=== PATIENT | male | born 1960 | race Caucasian/White ===

== ENCOUNTER → 2016-02-28 | Outpatient (CLI) | payer BC ==
[~2016-02-28] MED LIST: FLUO5CRE TOP; FLUT27.5 NAE; MULT-506 PO; TRIA1SPR10 NAE; [UNRECOGNIZED DRUG - CODE] TOP
--- NOTE | 2016-02-28 08:56 | DIAGNOSTIC IMAGING REPORT ---
ABDOMINAL ULTRASOUND, RIGHT UPPER QUADRANT HISTORY: Liver lesion.. COMPARISON: CT of the abdomen and pelvis January 18, [address] of the abdomen March 04, 2015 and right upper quadrant ultrasound January 16, 2014. FINDINGS: Liver morphology is normal. No hepatic lesions are identified on this exam. The 4 mm liver lesion shown on CT of March 04, 2015 is not evident on this exam. There is no biliary ductal dilatation. No gallstones are identified. A small gallbladder polyp is unchanged. The pancreatic body is normal. The head and tail are partially obscured. There is no right hydronephrosis. IMPRESSION: 1. No hepatic lesions identified by sonography. The 4 mm lesion shown on CT of March 04, 2015 is not visualized on this exam, likely due to its small size. 2. No gallstones or biliary ductal dilatation. Electronically signed by: Julio Yoder M.D. 02/28/2016 8:54 AM Dictated Date/Time: 02/28/2016 8:43 AM
== END | disposition home or self-care (01) ==
LOC: C.ULTR 08:08
PROVIDERS: ATTEND Internal Medicine
DX: K76.9 Liver disease, unspecified (principal)

== ENCOUNTER → 2016-03-13 | Outpatient (CLI) | payer BC ==
[2016-03-13 15:03] LABS: CHOLESTEROL/HDL RATIO 3.6
== END | disposition home or self-care (01) ==
LOC: C.LABSPEC 09:40
PROVIDERS: ATTEND Internal Medicine
DX: Z11.59 Encounter for screening for other viral diseases (principal); Z13.6 Encounter for screening for cardiovascular disorders

== ENCOUNTER → 2016-05-12 | Outpatient (CLI) | payer BC ==
--- NOTE | 2016-05-12 16:53 | DIAGNOSTIC IMAGING REPORT ---
MRI right shoulder RIGHT UPPER EXT JOINT WITHOUT CLINICAL HISTORY: RIGHT ROTATOR CUFF TEAR Right trauma. Pain. TECHNIQUE: Multi axial MRI acquisition COMPARISON STUDY: None FINDINGS: Hypertrophic change acromioclavicular joint. There is mild impingement. Mild supraspinatus tendinopathy. No evidence for full-thickness rotator cuff tear. The infraspinatus and subscapularis tendons are intact. Moderate scattered subscapularis tendinopathy. Biceps tendon is intact. Degenerative change family labrum with substance loss at the superior labral margin. IMPRESSION: 1. Moderate degenerative change of all major osseous structures. 2. Hypertrophic change acromioclavicular joint creating tendinopathy of the supraspinatus. 3. Moderate tendinopathy of the subscapularis tendon. 4. Degenerative changes of the substance of the glenoid labrum primarily at its the superior and anterior superior aspect. 5. Electronically signed by: Nabeel Arrington M.D. 05/12/2016 4:51 PM Dictated Date/Time: 05/12/2016 4:45 PM
== END | disposition home or self-care (01) ==
PROVIDERS: ATTEND Orthopaedic Surgery
DX: S46.011A Strain of muscle(s) and tendon(s) of the rotator cuff of right shoulder, initial encounter (principal); X58.XXXA Exposure to other specified factors, initial encounter; M25.811 Other specified joint disorders, right shoulder

== ENCOUNTER → 2016-09-11 | Outpatient (CLI) | payer BC ==
[2016-09-11 12:11] LABS: BASO % 0.5 %; BASO ABS # 0.02 K/uL (0-0.2); COMPLETE YES; EOS % 3.8 %; HEMATOCRIT 45.6 % (42-52); IG% 0.2 %; LYMPH % 31.4 %; LYMPH ABS # 1.32 K/uL (1.2-3.4); MEAN CELL VOLUME 88.5 fL (80-100); MEAN CORPUSCULAR HEMOGLOBIN 31.5 pg (25-34); MEAN CORPUSCULAR HGB CONC 35.5 g/dl (32-36); MEAN PLATELET VOLUME 10.3 fL (7.4-10.4); MONO % 8.6 %; NEUT % 55.5 %; PLATELET COUNT 238 K/uL (130-400); RED BLOOD COUNT 5.15 M/uL (4.7-6.1); WHITE BLOOD COUNT 4.21 K/uL (4.8-10.8)
[2016-09-11 12:24] LABS: ALT/SGPT 17 U/L (12-78); AST/SGOT 17 U/L (15-37); BLOOD UREA NITROGEN 10 mg/dl (7-18); BUN/CREATININE RATIO 10.8 (10-20); CALCIUM 8.7 mg/dl (8.5-10.1); CARBON DIOXIDE 28 mmol/L (21-32); CHLORIDE 108 mmol/L (98-107); CREATININE 0.96 mg/dl (0.60-1.40); GLUCOSE 91 mg/dl (70-99); POTASSIUM 3.9 mmol/L (3.5-5.1); SODIUM 141 mmol/L (136-145)
[2016-09-11 12:27] LABS: CHOLESTEROL/HDL RATIO 3.1
[2016-09-11 12:27] LABS: ALB/GLOB RATIO 1.2 (0.9-2); ALKALINE PHOSPHATASE 73 U/L (45-117)
== END | disposition home or self-care (01) ==
LOC: C.LABBFT 08:24
PROVIDERS: ATTEND Nurse Practitioner Family
DX: C18.0 Malignant neoplasm of cecum (principal); E78.5 Hyperlipidemia, unspecified

== ENCOUNTER → 2016-10-31 | Outpatient (CLI) | payer BC | END | disposition home or self-care (01) | LOC: C.PATHSPEC 17:27 | PROVIDERS: ATTEND Dermatology | DX: L57.0 Actinic keratosis (principal) ==

== ENCOUNTER → 2016-11-29 | Day surgery (SDC) | payer BC ==
[2016-11-17 08:54] VITALS: Ht 172.7 cm; Wt 84.1 kg
[~2016-11-29] VITALS: Ht 172.7 cm; Wt 84.1 kg
[~2016-11-29] MED LIST changes: -FLUT27.5 NAE; +LIDOCAINE HCL 2% 2 ML VIAL (20MG/ML) ONE; +MIDAZOLAM HCL 1 MG/ML 2ML VIAL ONE; +PROPOFOL IV EMULSION 10 MG/ML 20 ML VIAL IV ONE; -[UNRECOGNIZED DRUG - CODE] TOP
[2016-11-29 08:26] VITALS: TEMP 37.1
--- NOTE | 2016-11-29 08:48 | Endo History and Physical ---
History & Physical Date of Service: Nov 29, 2016. Chief Complaint: Hx of colon cancer Referring Physician: Janie History of Present Illness 56 yo CM who presents for colonoscopy secondary to history of colon cancer. Past Medical History Arthritis, Fractures, Cancer, Other Past Surgical History Hx Cardiac Surgery: No Hx Internal Defibrillator: No Hx Pacemaker: No Hx Abdominal Surgery: No Hx of Implantable Prosthesis: No Hx Post-Op Nausea and Vomiting: No Hx Cancer Surgery: Yes (COLON RESECTION) Hx Thoracic Surgery: No Hx Orthopedic: Yes (LEFT TORN MENISCUS REPAIR) Hx Urinary Tract Surgery: No Family History None Social History Smoking Status: Never Smoker Hx Substance Use: No Hx Alcohol Use: Yes (RARELY) Allergies Coded Allergies: No Known Allergies (Unverified , 11/29/16) Current Medications Reported Home Medications Medications Dose Route/Sig Max Daily Dose Days Date Category Nasal Allergy 24 Hour (Triamcinolone Acetonide (Nasal) 55 Mcg/Act Spr 1 [place] JAQUELINE QAM 11/17/16 Reported Multivitamin (Multivitamins) Tab 1 Tab PO QAM 05/12/13 Reported Vital Signs Weight (Kilograms): 84.09 Height (Feet): 5 Height (Inches): 8 Date Time Temp Pulse Resp B/P (MAP) Pulse Ox O2 Delivery O2 Flow Rate FiO2 11/29/16 08:26 37.1 63 18 137/91 (106) 95 Room Air Physical Exam General Appearance: WD/WN, no apparent distress Respiratory/Chest: Auscultation: breath sounds normal Cardiovascular: Heart Auscultation: RRR Abdomen: Bowel Sounds: normal Inspection & Palpation: soft, non-distended, no tenderness, guarding & rebound Assessment and Plan Assessment: 56 yo CM who presents for colonoscopy secondary to history of colon cancer. Plan: Proceed with colonoscopy.
--- NOTE | 2016-11-29 09:16 | Discharge Instructions ---
Endoscopy Patient Instructions Date / Procedure(s) Performed Nov 29, 2016. Colonoscopy Allergy Information Coded Allergies: No Known Allergies (Unverified , 11/29/16) Discharge Date / Findings Nov 29, 2016. Colon polyp Internal hemorrhoids Medication Instructions OK to resume all medications today as prescribed Reported Home Medications Medications Dose Route/Sig Max Daily Dose Days Date Category Nasal Allergy 24 Hour (Triamcinolone Acetonide (Nasal) 55 Mcg/Act Spr 1 [place] JAQUELINE QAM 11/17/16 Reported Multivitamin (Multivitamins) Tab 1 Tab PO QAM 05/12/13 Reported Provider Instructions Activity Restrictions - No exercising or heavy lifting for 24 hours. - Do not drink alcohol the day of the procedure. - Do not drive a car or operate machinery until the day after the procedure. - Do not make any important decisions or sign important papers in 24 hours after the procedure. Following Day: - Return to full activity which may include returning to work/school. Diet Start your diet with liquids and light foods (jello, soup, juice, toast). Then eat your usual diet if not nauseated. Treatment For Common After Affects For mild abdominal pain, bloating, or excessive gas: - Rest - Eat lightly - Lie on right side Follow-Up Information Follow-up with Janie as scheduled Anesthesia Information What You Should Know You have had a procedure that required some medicine to reduce anxiety and discomfort. This treatment is called moderate sedation. After receiving the treatment, you may be sleepy, but you will be able to breathe on your own. The effects of the treatment may last for several hours. Follow these instructions along with Activity/Diet recommendations noted above: * Do NOT do anything where dizziness or clumsiness would be dangerous. * Rest quietly at home today, then you can be up and about tomorrow. * Have a responsible person stay with you the rest of today. * You may have had an I.V. today. If so, you may take the dressing off later today. Recommendations Call your doctor if: * Trouble breathing * Continuous vomiting for more than 24 hours * Temperature above 101 degrees * Severe abdominal pain or bloating * Pain not relieved by pain medicine ordered * There is increased drainage or redness from any incision * A large amount of rectal bleeding greater than 2-3 tablespoons. (If you had a polyp/s removed or have hemorrhoids, a small amount of blood - from the rectum is to be expected.) * You have any unanswered questions or concerns. IN THE EVENT OF A SERIOUS EMERGENCY, GO TO THE NEAREST EMERGENCY ROOM Your discharge instructions were prepared by provider Patel Morales. Patient Instructions Signature Page Russell Pretty Patient (or Guardian) Signature/Date: I have read and understand the instructions given to me by my caregivers. Caregiver/RN/Doctor Signature/Date: The above-named patient and/or guardian has received patient instructions on this date. + Original Patient Signature Page (only) stays with chart. Please make copy for patient.
--- NOTE | 2016-11-29 09:27 | GI REPORT ---
Procedure Date: 11/29/2016 8:46 AM Procedure: Colonoscopy Indications: High risk colon cancer surveillance: Personal history of colon cancer Medicines: Monitored Anesthesia Care Complications: No immediate complications. Estimated Blood Loss: Estimated blood loss: none. Procedure: Pre-Anesthesia Assessment: - Prior to the procedure, a History and Physical was performed, and patient medications and allergies were reviewed. The patient's tolerance of previous anesthesia was also reviewed. The risks and benefits of the procedure and the sedation options and risks were discussed with the patient. All questions were answered, and informed consent was obtained. Prior Anticoagulants: The patient has taken no previous anticoagulant or antiplatelet agents. ASA Grade Assessment: II - A patient with mild systemic disease. After reviewing the risks and benefits, the patient was deemed in satisfactory condition to undergo the procedure. After I obtained informed consent, the scope was passed under direct vision. Throughout the procedure, the patient's blood pressure, pulse, and oxygen saturations were monitored continuously. The Scope was introduced through the anus and advanced to the terminal ileum. The colonoscopy was performed without difficulty. The patient tolerated the procedure well. The quality of the bowel preparation was good. The terminal ileum, ileocecal valve, appendiceal orifice, and rectum were photographed. Findings: The perianal and digital rectal examinations were normal. A 5 mm polyp was found in the descending colon. The polyp was flat. The polyp was removed with a hot snare. Resection and retrieval were complete. There was evidence of a prior end-to-end colo-colonic anastomosis in the sigmoid colon. This was patent and was characterized by healthy appearing mucosa. The anastomosis was traversed. Non-bleeding internal hemorrhoids were found during retroflexion. The hemorrhoids were small. Impression: - One 5 mm polyp in the descending colon, removed with a hot snare. Resected and retrieved. - Patent end-to-end colo-colonic anastomosis, characterized by healthy appearing mucosa. - Non-bleeding internal hemorrhoids. Recommendation: - Resume previous diet. - Continue present medications. - Await pathology results. - Repeat colonoscopy for surveillance based on pathology results. Patel Morales DO 11/29/2016 9:27:10 AM This report has been signed electronically. Note Initiated On: 11/29/2016 8:46 AM I attest to the content of the Intraoperative Record and orders documented therein, exceptions below
[2016-11-29 09:51] VITALS: BP 158/94; PULSE 64; O2SAT 96
--- NOTE | 2016-11-29 10:22 | Anesthesiology Progress Note ---
Anesthesia Post Op Note Date & Time Nov 29, 2016 at 10:22 Vital Signs Pain Intensity: 0 Vital Signs Past 12 Hours Date Time Temp Pulse Resp B/P (MAP) Pulse Ox O2 Delivery O2 Flow Rate FiO2 11/29/16 09:51 64 20 158/94 (115) 96 Room Air 11/29/16 09:36 55 18 142/79 (100) 95 Room Air 11/29/16 09:21 72 14 126/82 (97) 95 Room Air 11/29/16 08:26 37.1 63 18 137/91 (106) 95 Room Air Notes Mental Status: alert / awake / arousable, participated in evaluation Pt Amnestic to Procedure: Yes Nausea / Vomiting: adequately controlled Pain: adequately controlled Airway Patency, RR, SpO2: stable & adequate BP & HR: stable & adequate Hydration State: stable & adequate Anesthetic Complications: no major complications apparent
== END | disposition home or self-care (01) ==
LOC: C.GI 08:06
PROVIDERS: ATTEND Internal Medicine
DX: Z12.11 Encounter for screening for malignant neoplasm of colon (principal); D12.4 Benign neoplasm of descending colon; K64.8 Other hemorrhoids; Z85.038 Personal history of other malignant neoplasm of large intestine; Z98.890 Other specified postprocedural states; Z68.28 Body mass index [BMI] 28.0-28.9, adult

== ENCOUNTER → 2016-12-27 | Outpatient (CLI) | payer BC ==
[~2016-12-27] MED LIST changes: -FLUO5CRE TOP; -LIDOCAINE HCL 2% 2 ML VIAL (20MG/ML) ONE; -MIDAZOLAM HCL 1 MG/ML 2ML VIAL ONE; +OPTIRAY 320 IV PRN; -PROPOFOL IV EMULSION 10 MG/ML 20 ML VIAL IV ONE
--- NOTE | 2016-12-27 12:55 | DIAGNOSTIC IMAGING REPORT ---
ABD/PELVIS IV AND ORAL CONT CT DOSE: 440.63 mGy.cm HISTORY: Colon carcinoma C18.0,K74.60 TECHNIQUE: Multiaxial CT images of the abdomen and pelvis were performed following the use of intravenous and oral contrast. A dose lowering technique was utilized adhering to the principles of ALARA. COMPARISON STUDY: 01/18/2016 FINDINGS: Lung bases are clear. Mild fatty infiltration of liver. Spleen and pancreas are unremarkable. Kidneys negative for hydronephrosis. Enhancement characteristics of the kidneys are unremarkable. Adrenal glands are within normal limits. Kidneys enhance uniformly. There is no significant retroperitoneal adenopathy. Abdominal aorta is normal in course and caliber. Bowel pattern overall is nonobstructive. Findings of a partial sigmoid resection are again noted. This is unchanged. Scattered diverticuli are present with no evidence for diverticulitis. IMPRESSION: 1. No acute process of the abdomen or pelvis. 2. No evidence for metastatic disease. 3. No change from the prior study. The above report was generated using voice recognition software. It may contain grammatical, syntax or spelling errors. Electronically signed by: Nabeel Arrington M.D. 12/27/2016 12:53 PM Dictated Date/Time: 12/27/2016 12:48 PM
== END | disposition home or self-care (01) ==
LOC: C.CTS 12:11
PROVIDERS: ATTEND Nurse Practitioner Family
DX: C18.0 Malignant neoplasm of cecum (principal); K74.60 Unspecified cirrhosis of liver

== ENCOUNTER → 2017-10-12 | Outpatient (CLI) | payer BC ==
--- NOTE | 2017-10-12 09:21 | DIAGNOSTIC IMAGING REPORT ---
CT SCAN OF THE CHEST, ABDOMEN, AND PELVIS WITH IV CONTRAST CLINICAL HISTORY: Follow-up colon cancer. COMPARISON STUDY: Chest CT scans dated 01/18/2016 and 03/03/2014. Abdominal CT dated 12/27/2016. TECHNIQUE: Following the IV administration of 93 of Optiray 320, CT scan of the chest, abdomen, and pelvis was performed from the thoracic inlet to the proximal femora. Images are reviewed in the axial, sagittal, and coronal planes. IV contrast was administered without complication. A dose lowering technique was utilized adhering to the principles of ALARA. CT DOSE: 739.45 mGy.cm FINDINGS: CHEST: Thyroid: Imaged portions of the thyroid gland are normal in size and attenuation. Thoracic aorta: The thoracic aorta is normal in caliber and demonstrates bovine variant arch anatomy. No dissection is seen. Pulmonary vasculature: The pulmonary trunk is normal in caliber. There are no filling defects identified in the central pulmonary vessels to indicate pulmonary embolus. Note that this examination was not protocoled for evaluation of the pulmonary arteries. Heart: The heart is top normal in size and without pericardial effusion. Lungs and pleural spaces: There is no airspace consolidation or pleural effusion. Minimal secretions are noted in the trachea. The central airways are otherwise clear. No concerning pulmonary lesion is identified. Mediastinum: There is no mediastinal lymphadenopathy. Rose: Clear. Axillae: There is no axillary lymphadenopathy. Bony thorax: No lytic or blastic lesions are identified. ABDOMEN AND PELVIS: Liver: The contrast-enhanced liver is normal in size, contour, and attenuation. There is no intrahepatic or ductal dilatation. The hepatic veins and portal veins are patent. Gallbladder: Unremarkable. Spleen: Normal in size and attenuation. Pancreas: Unremarkable. Adrenal glands: Unremarkable. Kidneys: The contrast enhanced kidneys are normal in size and without hydronephrosis. The kidneys enhance symmetrically. Abdominal vasculature: The abdominal aorta is normal in course and caliber noting scattered foci of atherosclerotic calcification. Bowel: There is evidence of small bowel malrotation. The duodenum fails to cross midline, and the cecum/ascending colon are located in the abdominal midline. There are postoperative changes from sigmoid colon resection with colocolonic anastomosis. No bowel obstruction is seen. Moderate colonic fecal retention is observed. The appendix is not identified. Peritoneum: There is no intraperitoneal free air or abdominal ascites. There is a large fat-containing umbilical hernia. Lymphadenopathy: None. Pelvic viscera: The bladder, prostate, and seminal vesicles are normal as imaged. Surgical clips are noted along the spermatic cord bilaterally. Skeletal structures: There is mild lumbosacral spondylosis. No lytic or blastic lesions are seen. IMPRESSION: 1. There is no evidence of metastatic disease in the chest, abdomen, or pelvis. 2. There are postoperative changes from sigmoid colon resection with colocolonic anastomosis. No bowel obstruction is seen. 3. The lungs are clear. 4. 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 5. Additional findings as above. Electronically signed by: Emiliano Lou M.D. 10/12/2017 9:19 AM Dictated Date/Time: 10/12/2017 9:08 AM
== END | disposition home or self-care (01) ==
LOC: C.CTS 08:32
PROVIDERS: ATTEND Nurse Practitioner Family
DX: C18.0 Malignant neoplasm of cecum (principal)